=== PATIENT | male | born 1985 | race Caucasian/White ===

== ENCOUNTER 2024-08-04 07:14 | Observation (INO) | payer BC ==
[2024-08-04 09:24] LABS: PH,URINE 6.5 (5.0-8.0); URINE APPEARANCE CLEAR; URINE BILIRUBIN NEGATIVE (NEGATIVE); URINE COLOR YELLOW; URINE GLUCOSE (UA) NEGATIVE (NEGATIVE); URINE KETONE NEGATIVE (NEGATIVE); URINE LEUK ESTERASE NEGATIVE (NEGATIVE); URINE NITRITE NEGATIVE (NEGATIVE); URINE PROTEIN NEGATIVE (NEGATIVE); URINE UROBILINOGEN 0.2 mg/dL (0.2-1.0)
[2024-08-04 09:46] LABS: POTASSIUM 4.1 mmol/L (3.5-5.1)
[2024-08-04 09:51] LABS: CALCIUM 10.4 mg/dL (8.5-10.1)
[2024-08-04 09:52] LABS: ALBUMIN 4.4 g/dl (3.4-5.0); BLOOD UREA NITROGEN 13.8 mg/dL (7-18); MAGNESIUM 2.1 mg/dL (1.8-2.4)
[2024-08-04 09:55] LABS: BASO % 0.5 % (0-2.0); EOS % 0.5 % (0-4.5); HEMATOCRIT 42.1 % (35.4-49); HEMOGLOBIN 14.2 GM/dL (11.7-16.9); MCH 29.2 pg (25.7-33.7); MCHC 33.8 g/dl (32.0-35.9); MEAN CELL VOLUME 86.3 fl (80-96); PLATELET COUNT 292 10^3/uL (134-434); RBC 4.87 M/mm3 (4.00-5.60); WHITE BLOOD COUNT 8.9 K/mm3 (4.0-10.0)
[2024-08-04 09:56] LABS: CREATININE 1.2 mg/dL (0.55-1.3)
[2024-08-04 09:57] LABS: BILIRUBIN,TOTAL 0.7 mg/dL (0.2-1); TOT PROT 8.4 g/dl (6.4-8.2)
[2024-08-04 13:55] LABS: HIV INTERPRETATION NEGATIVE (NEGATIVE)
[2024-08-04 23:15] VITALS: BMI 28.3
[2024-08-05 07:27] LABS: MCH 29.1 pg (25.7-33.7); MCHC 33.3 g/dl (32.0-35.9); MEAN CELL VOLUME 87.6 fl (80-96); MEAN PLT VOLUME 9.2 fl (7.5-11.1); PLATELET COUNT 251 10^3/uL (134-434); RDW 13.8 % (11.9-15.9); WHITE BLOOD COUNT 6.5 K/mm3 (4.0-10.0)
[2024-08-05 07:34] LABS: POTASSIUM 4.2 mmol/L (3.5-5.1)
[2024-08-05 07:39] LABS: CALCIUM 9.4 mg/dL (8.5-10.1)
[2024-08-05 07:40] LABS: ALBUMIN 3.9 g/dl (3.4-5.0); BLOOD UREA NITROGEN 15.1 mg/dL (7-18); CHOLESTEROL 198 mg/dL (50-200)
[2024-08-05 07:41] LABS: HDL CHOLESTEROL 53 mg/dL (40-60); LDL CHOLESTEROL (ONLY SJRH) 126 mg/dL (5-100)
[2024-08-05 07:45] LABS: BILIRUBIN,TOTAL 0.7 mg/dL (0.2-1); TOT PROT 7.7 g/dl (6.4-8.2)
[2024-08-05] MEDS: LACTATED RINGERS SOLUTION 1,000 ML/1,000 ML INFUS.BAG IV SCH (11:26)
[2024-08-05 15:29] VITALS: BP 111/59; PULSE 70; RESP 16; TEMP 97.7
[2024-08-05] MEDS: ENOXAPARIN NA (PORCINE) 40 MG/0.4 ML DISP.SYRIN SQ SCH (17:47)
[2024-08-05] MEDS ORDERED: NAPROXEN 500 MG TABLET PO SCH (22:00)
== END 2024-08-05 18:45 | disposition home or self-care (01) ==
LOC: JER 07:14 → JERBED 10:47 → J4W 18:35
PROVIDERS: ADMIT Student in an Organized Health Care Education/Training Program; ATTEND Internal Medicine
PROC: 3E023GC Introduction of Other Therapeutic Substance into Muscle, Percutaneous Approach (ICD-10-PCS; principal; 2024-08-04)
PROC: 3E0337Z Introduction of Electrolytic and Water Balance Substance into Peripheral Vein, Percutaneous Approach (ICD-10-PCS; 2024-08-04)
DX: G43.909 Migraine, unspecified, not intractable, without status migrainosus (principal); R42 Dizziness and giddiness; R55 Syncope and collapse; J98.11 Atelectasis; K76.0 Fatty (change of) liver, not elsewhere classified; G47.09 Other insomnia; K21.9 Gastro-esophageal reflux disease without esophagitis; Z88.0 Allergy status to penicillin
CPT/HCPCS: 36415; 70551-TC; 71045-TC-FY; 80053; 80061; 81003; 82962; 83036; 83735; 84443; 84484; 85025; 85027; 86803; 87086; 87389; 93005; 93010; 99285-25; G0378